=== PATIENT | male | born 1975 | race Asian ===

== ENCOUNTER 2024-12-28 22:31 | Emergency (ER) | payer OTHER ==
[~2024-12-28] VITALS: Ht 167.6 cm; Wt 68.2 kg
[2024-12-28 23:00] LABS: COVID AG,FIA SOURCE NASAL SWAB
[2024-12-28 23:23] LABS: SARS-COV2 (COVID) ANTIGEN,FIA Negative (Negative)
[2024-12-28 23:25] LABS: INFLUENZA TYPE A NEGATIVE FOR TYPE A (NEGATIVE); INFLUENZA TYPE B NEGATIVE FOR TYPE B (NEGATIVE); RAPID GROUP A STREP NEGATIVE (NEGATIVE)
[2024-12-29] MEDS: KETOROLAC TROMETHAMINE 30 MG/ML VIAL IM ONE (00:07)
[2024-12-29] MEDS: dexAMETHasone 4 MG TABLET PO ONE (00:07)
[2024-12-29] MEDS: ACETAMINOPHEN 325 MG TABLET PO ONE (00:07)
[2024-12-29] MEDS: GuaiFENesin/D-METHORPHAN/PHENYLEPH 5 ML LIQUID ORAL.SYG PO ONE (00:11)
[2024-12-29 01:29] VITALS: TEMP 98.6
[2024-12-29 04:10] VITALS: BP 123/80; PULSE 79; RESP 17; O2SAT 99
== END 2024-12-29 00:04 ==
LOC: EMS 22:31
DX: J06.9 Acute upper respiratory infection, unspecified (principal); B97.89 Other viral agents as the cause of diseases classified elsewhere; F17.210 Nicotine dependence, cigarettes, uncomplicated; Z20.822 Contact with and (suspected) exposure to COVID-19
CPT/HCPCS: 99284; 87426; 87430; 87804; 96372; J1885; J8540